=== PATIENT | male | born 1965 | race Caucasian/White ===

== ENCOUNTER 2020-02-19 17:59 | Outpatient (CLI) | payer BC, SELFPAY ==
--- NOTE | ~2020-02-19 | XR_ITS ---
EXAMINATION: XR shoulder LT min 2V EXAM DATE: 02/19/2020 18:19 INDICATION: M25.512 - Pain in left shoulder, injury 6weeks ago . TECHNIQUE: The following left shoulder projections obtained: frontal projection with internal rotatio n, frontal projection with external rotation, Grashey, and scapular Y view (4+ views). There is no p rior study for comparison. FINDINGS: No evidence of left shoulder rotator cuff calcific tendinosis. There is mild glenohumeral and acromioclavicular joint primary osteoarthritis. There are no acute fractures or dislocations adam ntified. There is no subcutaneous gas. The soft tissue is unremarkable. There are no radiopaque f oreign bodies. IMPRESSION: Mild left shoulder osteoarthritis. Reviewed, dictated and finalized at location A.
== END 2020-02-19 18:00 | disposition home or self-care (01) ==
PROVIDERS: PCP Family Medicine; Visit Provider Family Medicine
DX: M19.012 Primary osteoarthritis, left shoulder (principal)
CPT/HCPCS: 73030

== ENCOUNTER 2021-09-08 20:11 | Emergency (ER) | payer BC, SELFPAY ==
[2021-09-08 20:38] VITALS: BP 112/88; PULSE 70; RESP 16; TEMP 36.1; O2SAT 98
--- NOTE | 2021-09-08 22:04 | ED.EXTPRO ---
HPI - Extremity Problem General Chief complaint: Extremity Problem,Nontraumatic Stated complaint: back pain shooting down leg Time Seen by Provider: 09/08/21 21:26 Source: patient Mode of arrival: ambulatory Limitations: no limitations History of Present Illness HPI Narrative: Patient is a 55-year-old male who presents to the ED with report of right calf pain and spasms. He describes the pain as a sharp shooting pain in his R mid calf that shoots up and down his leg. Patient reports he flew back and forth to [place] over the weekend and did strenuous hiking activities while he was there. He reports he experienced this shooting pain a few times over the weekend but did not think much of it. Today around noon he experienced shooting pain again. He states the pain was persistent throughout the day today, occurring every 10 to 15 minutes and lasting for a few seconds up to 10 seconds at a time. He tried taking aspirin at home without much relief. Denies any swelling, redness, warmth, chest pain, shortness of breath, direct injury, back pain, trouble walking, other recent immobilizations. No history of blood clots. No blood thinners. Related Data Home Medications Medication Instructions Recorded Confirmed fluticasone propionate 50 1 spray INTRANASAL BID 08/24/20 03/02/21 mcg/actuation nasal spray,suspension Allergies Allergy/AdvReac Type Severity Reaction Status Date / Time amoxicillin Allergy Unknown Hives Verified 09/08/21 20:42 Review of Systems Review of Systems: CONSTITUTIONAL: Denies fever, chills. CARDIOVASCULAR: Denies chest pain or edema. RESPIRATORY: Denies cough or dyspnea. SKIN: Denies warmth, erythema, swelling to right lower extremity. MUSCULOSKELETAL: Reports right calf pain. Denies back pain, joint pain. NEUROLOGIC: Denies headache, numbness, or weakness. All systems reviewed & are unremarkable except as noted in HPI and below [facility] Past Medical History Medical History Acute bronchitis Acute non-recurrent maxillary sinusitis BMI 26.0-26.9,adult Elevated liver enzymes Normal liver enzymes on 02/22/2021 with AST 23 and ALT 32 Left shoulder pain Seasonal allergies Surgical History Surgical History (Updated 09/09/21 @ 00:31 by Zaina N. Skau, PA-C) No pertinent past surgical history Family History Family History Father Diabetes mellitus Acute myocardial infarction Mother Patient's mother is , Onset Age: 69 Sibling Patient's brother is in good health Social History Social History Smoking status: Never smoker Alcohol intake: current Substance use: never Substance use type: does not use Exam Narrative: GENERAL: Well appearing, well-nourished, non-toxic, in no acute distress. HEAD: Normocephalic, atraumatic. NECK: Supple. No adenopathy, no masses. RESPIRATORY: Airway patent, respirations nonlabored. Clear to auscultation bilaterally, no rales, rhonchi, wheezing. CARDIOVASCULAR: Regular rate and rhythm without murmurs, rubs, or gallops. Pedal pulses 2+ and equal bilaterally. MUSCULOSKELETAL: Moves all extremities. Strength/ROM intact without gross deformities or TTP. No unilateral edema. No calf tenderness to palpation. No erythema or warmth to palpation of right lower extremity. No open wounds or lacerations. SKIN: Warm, dry, normal color. No rashes. NEURO: A&O X3. Speech clear. Cranial nerves II-XII grossly intact. Steady gait. No ataxic movements. PSYCHIATRIC: Appropriate mood and affect. Normal interaction. Course Consultations Consultation #1: Discussed patient presentation and case findings with Dr. Booth, patient's primary care doctor. Advised that I will be ordering right lower extremity venous Doppler tomorrow morning. PCP in agreement of current plan. Date: 09/09/21 Vital Signs Vital signs
[2021-09-08] MEDS: KETOROLAC (*BKC) 60 MG/2 ML VIAL IM (22:15)
[2021-09-08 22:24] LABS: Basophils Absolute Auto 0.1 K/mm3 (0.0-0.1); Basophils Percent Auto 1.1 % (0.2-1.2); Eosinophils Absolute Auto 0.2 K/mm3 (0-0.3); Eosinophils Percent Auto 2.8 % (0-4.4); Hematocrit 38.9 % (42.0-52.0); Hemoglobin 12.9 g/dL (14.0-18.0); Immature Granulocyte Absolute 0.02 K/mm3 (0.00-0.031); Immature Granulocyte Percent A 0.4 % (0-0.5); Lymphocytes Absolute Auto 2.32 K/mm3 (0.9-3.2); Lymphocytes Percent Auto 42.6 % (18.3-44.2); Mean Corpuscular HGB Conc 33.2 g/dl (32-36); Mean Corpuscular Hemoglobin 29.8 pg (26-34); Mean Corpuscular Volume 89.8 fl (80-100); Mean Platelet Volume 8.7 fl (7.4-10.4); Monocytes Absolute Auto 0.4 K/mm3 (0.1-0.6); Monocytes Percent Auto 7.9 % (2.6-8.5); Neutrophils Absolute Auto 2.5 K/mm3 (1.3-6.7); Neutrophils Percent Auto 45.2 % (45.5-73.1); Platelet Count Result 268 k/mm3 (150-375); Red Blood Count 4.33 M/mm3 (4.6-6.20); Red Cell Distribution Width 12.4 % (11.5-14.5); White Blood Count 5.4 K/mm3 (4.5-10.0)
[2021-09-08 22:45] LABS: Alanine Aminotransferase 44 U/L (6-50); Albumin Level 4.6 g/dL (3.5-5.1); Alkaline Phosphatase 64 U/L (38-126); Anion Gap 7 mmol/L (8-16); Aspartate Amino Transferase 43 U/L (17-59); Bilirubin,Total 0.7 mg/dL (0.2-1.3); Blood Urea Nitrogen 15 mg/dL (9-20); Calcium 9.5 mg/dL (8.4-10.2); Carbon Dioxide 25 mmol/L (22-30); Chloride 104 mmol/L (98-107); Estimated CRCL calculation 70 ml/min; Estimated Glomerular Filt Rate > 60; Glucose 91 mg/dL (65-110); Potassium 3.6 mmol/L (3.4-5.0); Sodium 136 mmol/L (137-145)
[2021-09-08 23:36] LABS: D Dimer < 0.22 ug/mL (<0.48)
[2021-09-09 00:48] VITALS: BP 140/86; PULSE 76; RESP 18; O2SAT 98
== END 2021-09-09 00:53 | disposition home or self-care (01) ==
PROVIDERS: Physician Assistant; Emergency Provider Emergency Medicine; PCP Family Medicine
DX: M79.661 Pain in right lower leg (principal)
CPT/HCPCS: 36415; 80053; 83735; 85025; 85380; 96372; 99283; J1885

== ENCOUNTER 2021-09-09 07:58 | Outpatient (CLI) | payer BC, SELFPAY ==
--- NOTE | ~2021-09-09 | US_ITS ---
EXAMINATION: US venous doppler LE RT DATE: 09/09/2021 08:38 INDICATION: Right lower limb pain TECHNIQUE: Saleem scale images without and with compression and Doppler images of the right lower extre mity veins were obtained. COMPARISON: None FINDINGS: The right common femoral vein, profunda femoral vein, femoral vein, popliteal vein, peronea l trunk, posterior tibial veins, and greater saphenous vein are patent. IMPRESSION: 1. Patent right lower extremity veins. No evidence of deep venous thrombosis. Reviewed, dictated and finalized at location A.
== END 2021-09-09 07:59 | disposition home or self-care (01) ==
PROVIDERS: PCP Family Medicine; Visit Provider Physician Assistant
DX: M79.661 Pain in right lower leg (principal)
CPT/HCPCS: 93971

== ENCOUNTER → 2024-06-18 08:44 | Outpatient (CLI) | payer BC, SELFPAY ==
--- NOTE | ~2024-06-18 | XR_ITS ---
XR clavicle LT 06/18/2024 08:57 INDICATION: Left clavicle pain PROCEDURE: 2 views left clavicle COMPARISON: 02/19/2020 FINDINGS: Fracture, dislocation or subluxation is not identified. The soft tissues appear within norm al limits. No foreign bodies are identified. IMPRESSION: 1: NO ACUTE BONE OR JOINT ABNORMALITY IDENTIFIED. Reviewed, dictated and finalized at location B. [employer]
== END ==
LOC: EXPTRAD 08:46
PROVIDERS: PCP Family Medicine; Visit Provider Family Medicine
DX: M89.8X1 Other specified disorders of bone, shoulder (principal)
CPT/HCPCS: 73000